=== PATIENT | female | born 1980 | race Caucasian/White ===

== ENCOUNTER → 2016-11-11 17:02 | Outpatient (CLI) | payer BC | END | disposition home or self-care (01) | LOC: D.MAMMO 13:30 | DX: N64.4 Mastodynia (principal) ==

== ENCOUNTER → 2016-11-25 11:08 | Outpatient (CLI) | payer BC | END | disposition home or self-care (01) | LOC: D.US 11:08 | DX: R92.8 Other abnormal and inconclusive findings on diagnostic imaging of breast (principal) ==